=== PATIENT | male | born 1945 | race Caucasian/White ===

== ENCOUNTER 2023-07-21 11:25 | Emergency (ER) | payer MEDICARE, OTHER ==
[~2023-07-21] VITALS: Ht 167.6 cm; Wt 97.3 kg
[~2023-07-21 11:25] MED LIST: ASPIRIN E.C. 8181 MG PO; CIPRO 500MG TA500 MG PO; COLACE 100100 MG/CAP PO; FLAGYL500 MG PO; GLUCOPHAGE500 MG/TAB PO; HCTZ 25MG TAB25 MG PO; HYTRIN10 M1 PO; K-TAB10 PO; MEVACOR 20M20 MG/TAB PO; VIAGRA100 M1 PO; ZESTRIL 5MG5 MG PO
[2023-07-21 11:41] VITALS: TEMP 97.7
[2023-07-21 13:00] VITALS: BP 173/87; PULSE 58
[2023-07-21 13:34] LABS: BASO # 0.1 K/mm3 (0.0-0.2); BASO % 0.7 % (0.0-2.0); EOS # 0.2 K/mm3 (0.0-0.7); EOS % 2.7 % (0.0-4.0); GRAN # 5.7 K/mm3 (1.4-6.5); GRAN % 76.9 % (42.2-75.2); HEMATOCRIT 38.2 % (42.0-52.0); HEMOGLOBIN 12.6 g/dl (13.5-18.0); LYMPH # 0.9 K/mm3 (1.2-3.4); LYMPH % 12.3 % (20.0-51.0); MEAN CELL VOLUME 93 fl (80.0-100.0); MEAN CORPUSCULAR HEMOGLOBIN 31 pg (27-31); MEAN CORPUSCULAR HGB CONC 33 g/dl (33.0-37.0); MEAN PLATELET VOLUME 9.8 fl (7.4-10.4); MONO # 0.5 K/mm3 (0.1-0.6); PLATELET COUNT 239 K/mm3 (130-400); RED BLOOD COUNT 4.13 M/mm3 (4.20-5.60); REDCELL DISTRIBUTION WIDTH-CV 13.2 % (11.5-14.5)
[2023-07-21 13:42] LABS: INR 1.6 (0.8-3.0); PROTHROMBIN TIME 17.5 SECONDS (9.7-12.8)
[2023-07-21 13:50] LABS: ALBUMIN 3.6 gm/dL (3.4-4.8); BILIRUBIN,TOTAL 0.7 mg/dL (0.2-1.2); CALCIUM 9.3 mg/dL (8.4-10.2); CREATININE, serum 1.2 mg/dL (0.72-1.25); POTASSIUM 4.1 mmol/L (3.5-4.5); TOTAL PROTEIN 6.7 gm/dL (6.2-8.1)
== END 2023-07-21 13:36 | disposition home or self-care (01) ==
LOC: COL.ER 11:25
PROVIDERS: Family Medicine
DX: S00.03XA Contusion of scalp, initial encounter (principal); I48.91 Unspecified atrial fibrillation; Z79.01 Long term (current) use of anticoagulants; W01.10XA Fall on same level from slipping, tripping and stumbling with subsequent striking against unspecified object, initial encounter; Y92.481 Parking lot as the place of occurrence of the external cause